=== PATIENT | male | born 1970 ===

== ENCOUNTER 2023-04-21 06:32 | Day surgery (SDC) | payer OTHER ==
[2023-04-21] MEDS ORDERED: COLACE100 MG PO (10:29)
[2023-04-21] MEDS ORDERED: PERCOCET 5-3251 EACH PO (10:29)
[2023-04-21] MEDS ORDERED: NEURONTIN300 MG PO (10:29)
== END 2023-04-21 16:00 | disposition home or self-care (01) ==
LOC: CIR.AMB 06:32
PROVIDERS: ATTEND Surgery
DX: K64.8 Other hemorrhoids (principal); K62.89 Other specified diseases of anus and rectum; K60.1 Chronic anal fissure; K62.5 Hemorrhage of anus and rectum; K59.4 Anal spasm; K64.2 Third degree hemorrhoids; Z20.822 Contact with and (suspected) exposure to COVID-19; Z88.6 Allergy status to analgesic agent; I10 Essential (primary) hypertension